=== PATIENT | male | born 1985 | race Caucasian/White ===

== ENCOUNTER 2020-08-13 16:15 | Outpatient (CLI) | payer OTHER, SELFPAY ==
--- NOTE | ~2020-08-13 | XR_ITS ---
EXAMINATION: XR elbow RT min 3V INDICATION: Right elbow pain, initial encounter TECHNIQUE: Four views of the right elbow were obtained on five radiographs. COMPARISON: None available FINDINGS: There appears to be a small joint effusion. A heterotopic ossification projects dorsal to t he distal aspect of the humerus in one of the oblique views. Bone alignment is normal. IMPRESSION: 1. Osseous fragment projecting dorsal to the distal aspect of the humerus which could reflect small c hip fracture. 2. Elbow joint effusion. Reviewed, dictated and finalized at location A. EMS [facility] IMPRESSION: 1. Osseous fragment projecting dorsal to the distal aspect of the humerus which could reflect small chip fracture. 2. Elbow joint effusion.
== END 2020-08-13 16:16 | disposition home or self-care (01) ==
PROVIDERS: PCP Internal Medicine; Visit Provider Nurse Practitioner
DX: M25.421 Effusion, right elbow (principal)
CPT/HCPCS: 73080

== ENCOUNTER 2021-11-10 12:35 | Emergency (ER) | payer OTHER, SELFPAY ==
--- NOTE | ~2021-11-10 | XR_ITS ---
XR ankle LT min 3V DATE: 11/10/2021 13:18 INDICATION: Twisting injury. Lateral pain and swelling TECHNIQUE: 4 views COMPARISON: None FINDINGS: Mild lateral soft tissue swelling. No fracture or dislocation of the ankle or disruption of the ankle mortise. No periosteal reaction or bone destruction. IMPRESSION: Mild lateral soft tissue swelling; no fracture or dislocation Reviewed, dictated and finalized at location A.
[2021-11-10 12:36] VITALS: BP 117/68; PULSE 78; RESP 18; TEMP 36.7; O2SAT 100
--- NOTE | 2021-11-10 13:54 | ED.LOWEXIN ---
HPI - Extremity Injury (Lower) General Chief Complaint: Extremity Injury, Lower Stated Complaint: left ankle pain Time Seen by Provider: 11/10/21 13:21 History of Present Illness HPI Narrative: Patient states that he was skateboarding, when he rolled his left ankle. It is more swollen than usual which is why he decided come in to make sure it was not broken, he states that he usually has problems with right ankle. He already put some ice on it which helped, has not had much pain other than when he walks on it. No injuries anywhere else Related Data Home Medications Medication Instructions Recorded Confirmed infliximab 100 mg intravenous IV 08/20/20 09/04/20 solution (Remicade) Allergies Allergy/AdvReac Type Severity Reaction Status Date / Time ciprofloxacin Allergy Unknown Unknown Verified 09/04/20 11:07 mesalamine Allergy Unknown Unknown Verified 09/04/20 11:07 Penicillins Allergy Unknown Unknown Verified 09/04/20 11:07 sulfasalazine Allergy Unknown Unknown Verified 09/04/20 11:07 Review of Systems Review of Systems: M/S: No joint pain. SKIN: No rash. NEURO: [No headache or focal numbness or weakness] PSYCH: [No depression] PMFSH Past Medical History Medical History Radial collateral ligament sprain of right elbow Surgical History Surgical History History of surgery on wrist left (torn tendons) 2012 Family History Family History Mother Hypertension Social History Social History Smoking packs per day: 1 Smoking cigarettes per day: 20.0 Years smoked: 4 Smoking pack-years: 4.00 Smoking end date: 06/14/10 Alcohol intake: never Substance use: never Substance use type: does not use Gender identity (if verbalized by the patient): Male Exam Narrative: EXAMINATION OF ORGAN SYSTEMS/BODY AREAS: Constitutional: Vital signs per nursing GENERAL:[No acute distress, non-toxic appearing.] HEAD: Normal with no signs of head trauma. EYES: EOMI, conjunctiva normal ENT: Hearing grossly intact LUNGS: Nonlabored breathing. HEART: [Regular rate and rhythm] EXT: Normal range of motion SKIN: Bruising/swelling to the lateral aspect of the left ankle, no pain of the foot, neurovascularly intact. NEURO: [Alert and oriented x 3. No gross focal sensory or strength deficits.] PSYCH: Normal affect Course Vital Signs Vital signs: Vital Signs Temperature 98.0 F 11/10/21 12:36 Pulse Rate 78 11/10/21 12:36 Respiratory Rate 18 11/10/21 12:36 Blood Pressure 117/68 11/10/21 12:36 Pulse Oximetry 100 11/10/21 12:36 Oxygen Delivery Room Air 11/10/21 12:36 Temperature 98.0 F 11/10/21 12:36 Pulse Rate 78 11/10/21 12:36 Respiratory Rate 18 11/10/21 12:36 Blood Pressure 117/68 11/10/21 12:36 Pulse Oximetry 100 11/10/21 12:36 Oxygen Delivery Room Air 11/10/21 12:36 MDM - Extremity Injury (Lower) MDM Narrative Medical decision making narrative: MEDICAL DECISION MAKING AND COURSE IN THE ED WITH INTERPRETATION/REVIEW OF DIAGNOSTIC STUDIES: Electronic medical record was reviewed, Patient presented to the ED with complaint of [left ankle pain after inversion injury]. Vitals [were within acceptable limits]. Physical exam revealed tenderness at [left ankle, lateral malleolus]. Based on the patient's history and physical exam, I am concerned for fracture vs sprain. Ankle xrays were obtained showing no fracture. TOMMY wrap applied to injured extremity. Patient given strict return precautions if pain is worse, and advised to rest the limb and to followup with his foot Dr. As needed. Discharge Plan Discharge Clinical Impression: Fall, Ankle sprain and strain Patient Disposition: Home, Self-Care Condition: Stable Instructions: Antibiotic Form, Ankle Sprain (ED)
== END 2021-11-10 14:10 | disposition home or self-care (01) ==
PROVIDERS: Emergency Provider Emergency Medicine; PCP Internal Medicine
DX: S93.402A Sprain of unspecified ligament of left ankle, initial encounter (principal); S96.912A Strain of unspecified muscle and tendon at ankle and foot level, left foot, initial encounter; Z87.891 Personal history of nicotine dependence; X50.9XXA Other and unspecified overexertion or strenuous movements or postures, initial encounter; Y93.51 Activity, roller skating (inline) and skateboarding
CPT/HCPCS: 73610; 99283